=== PATIENT | female | born 1990 | race Caucasian/White ===

== ENCOUNTER 2025-05-16 20:05 | Emergency (ER) | payer BC, MEDICAID ==
[~2025-05-16] VITALS: Ht 165.1 cm; Wt 76.6 kg
[2025-05-16 20:11] VITALS: O2SAT 99
[2025-05-16] MEDS: ONDANSETRON HCL 4MG TABLET PO ONE (20:58)
[2025-05-16] MEDS: ACETAMINOPHEN 500MG TABLET PO ONE (20:58)
[2025-05-16 21:11] LABS: BASOPHILS % 0.1 % (0.0-2.0); EOSINOPHILS % 0.0 % (0.0-5.0); HEMATOCRIT. 42.9 % (36.0-48.0); HEMOGLOBIN. 14.4 g/dL (12.0-16.0); LYMPHOCYTES % 7.9 % (20.0-50.0); MEAN PLATELET VOLUME 8.6 fl (7.4-10.4); MONOCYTES % 5.3 % (2.0-8.0); NEUTROPHILS % 86.7 % (40.0-76.0); PLATELET 178 x1000/uL (130-400); RED BLOOD CELL COUNT 4.86 mill/uL (4.2-5.4); RED CELL DISTRIBUTION WIDTH 14.5 % (11.6-14.6)
[2025-05-16 21:17] LABS: GLUCOSE URINE NEGATIVE (NEGATIVE); KETONES URINE NEGATIVE (NEGATIVE); LEUKOCYTE ESTERASE URINE TRACE (NEGATIVE); NITRITE URINE POSITIVE (NEGATIVE); OCCULT BLOOD URINE NEGATIVE (NEGATIVE); PH URINE 6.5 (4.5-8.0); PROTEIN URINE NEGATIVE (NEGATIVE); SPECIFIC GRAVITY URINE 1.011 (1.005-1.030); UROBILINOGEN URINE 0.2 E.U./dL (0.2-1.0)
[2025-05-16 21:19] LABS: HCG SCREEN NEGATIVE
[2025-05-16 21:21] LABS: CREATININE 0.7 mg/dL (0.6-1.0); UREA NITROGEN BLOOD < 5 mg/dL (9-23)
[2025-05-16 21:23] LABS: ASPARTATE AMINOTRANSFERASE 21 IU/L (<34); BILIRUBIN DIRECT 0.2 mg/dL (<=3.0); BILIRUBIN TOTAL 0.8 mg/dL (0.1-1.0); PROTEIN TOTAL 7.8 g/dL (6.0-8.3)
[2025-05-16 21:34] LABS: CLARITY URINE HAZY (CLEAR); COLOR URINE STRAW (YELLOW)
[2025-05-16 21:35] LABS: BACTERIA URINE 2+; RBC URINE NONE SEEN /hpf (0-2); SQUAMOUS EPITHELIAL CELL URINE 2+ /lpf (RARE/1+); WBC URINE 0-2 /hpf (0-2)
[2025-05-16] MEDS ORDERED: CEPH500C2 MT (22:23)
[2025-05-16] MEDS: SODIUM CHLORIDE 0.9% (SEPSIS BOLUS) IV ONE (23:05)
[2025-05-16] MEDS: CEFTRIAXONE 1GM/50ML 50 ML IV ONE (23:10)
[2025-05-16] MEDS: IBUPROFEN 400MG TABLET PO ONE (23:18)
[2025-05-16 23:33] LABS: INR 1.0
[2025-05-17 00:05] VITALS: TEMP 38.6
[2025-05-17 01:00] VITALS: BP 127/80; PULSE 100; RESP 12; O2SAT 95
[2025-05-17] MEDS ORDERED: CEFP100T8 MT (01:11)
[2025-05-17] MEDS ORDERED: TOPUD MT (01:11)
== END 2025-05-17 02:01 | disposition home or self-care (01) ==
LOC: ER 20:05 → CMPBEDREQ 05-17 08:58
DX: N39.0 Urinary tract infection, site not specified (principal); A41.9 Sepsis, unspecified organism; R65.20 Severe sepsis without septic shock; J45.909 Unspecified asthma, uncomplicated; Z90.49 Acquired absence of other specified parts of digestive tract
CPT/HCPCS: 99291; 74176; 96365; 76705; 80076; 80048; 81003; 81025; 84703; 83605; 83690; 85025; 85610; 87040; 87086; 87186; 87077; 36415; 84145; 71045; Q0162; J0696; J7030